=== PATIENT | male | born 1975 ===

== ENCOUNTER 2017-12-01 20:01 | Emergency (ER) | payer OTHER ==
[2017-12-01 20:24] VITALS: BP 125/77; PULSE 76; TEMP 97.1; BMI 44.8
[2017-12-01] MEDS ORDERED: KETOROLAC TROMETHAMINE 30 MG/1 ML VIAL IM ONE (20:33)
--- NOTE | 2017-12-01 20:42 | PDOC ---
History of Present Illness - General Chief Complaint: Back Pain Stated Complaint: Severe Low back pain Time Seen by Provider: 12/01/17 20:14 History Source: Patient - History of Present Illness Initial Comments: 12/01/17 20:42 41-year-old male with history of spinal stenosis status post spinal surgery in 2011 at [facility]. Patient for 2 days with increased pain to the lower back radiating to the right leg. gave patient Tramadol 100 mg 3 hours ago, lidocaine patch, cyclobenzaprine 20mg 2 hours ago. Pain only slightly relieved since intervention at home. No saddle anesthesia, numbness or tingling to the lower extremities, incontinence of urine or bowel. Past History - Past Medical History Allergies/Adverse Reactions: Allergies Allergy/AdvReac Type Severity Reaction Status Date / Time No Known Allergies Allergy Verified 12/01/17 20:24 Home Medications: Ambulatory Orders Cyclobenzaprine HCl [Flexeril -] 10 mg PO TID PRN #10 tablet 12/01/17 Ibuprofen 800 mg PO QID PRN #20 tablet 12/01/17 Oxycodone HCl/Acetaminophen [Percocet 5-325 mg Tablet] 1 tab PO Q6H PRN #7 tablet MDD 4 12/01/17 - Suicide/Smoking/Psychosocial Hx Smoking History: Never smoked Have you smoked in the past 12 months: No Information on smoking cessation initiated: No Hx Alcohol Use: No Drug/Substance Use Hx: No Review of Systems - Review of Systems Able to Perform ROS?: Yes Is the patient limited Khmer proficient: No Constitutional: No: Symptoms Reported, See HPI, Chills, Diaphoresis, Fever, Loss of Appetite, Malaise, Night Sweats, Weakness, Weight Stable, Unintentional Wgt. Loss, Unexplained wgt Loss, Other Musculoskeletal: Yes: Back Pain Integumentary: No: Symptoms Reported, See HPI, Bruising, Change in Color, Change in Hair/Nails, Dryness, Erythema, Flushing, Lesions, Lumps, Pallor, Pruritus, Rash, Sweating, Other *Physical Exam - Vital Signs Last Vital Signs Temp Pulse Resp BP Pulse Ox 97.1 F L 76 19 125/77 98 12/01/17 20:08 12/01/17 20:08 12/01/17 20:08 12/01/17 20:08 12/01/17 20:08 - Physical Exam General Appearance: Yes: Appropriately Dressed Respiratory/Chest: positive: Lungs Clear, Normal Breath Sounds Gastrointestinal/Abdominal: positive: Normal Bowel Sounds, Soft Musculoskeletal: positive: Vertebral Tenderness (lumbar sacral area) Extremity: positive: Normal Capillary Refill, Normal Inspection, Normal Range of Motion Integumentary: positive: Normal Color, Dry, Warm Neurologic: positive: Fully Oriented, Alert, Normal Mood/Affect Medical Decision Making - Medical Decision Making 12/01/17 20:45 A: back pain P:lumbar CT pain control 12/01/17 22:30 CT lumbar spine: The T12-L1 level is within normal limits for the patient's age , without spinal stenosis or neural foraminal narrowing. The L1-L2 level is within normal limits for the patient's age, without spinal stenosis or neural foraminal narrowing. At the L2-L3 level there is a moderate broad-based posterior disc osteophyte complex bulge associate with mild facet degenerative changes, but without spinal stenosis or neural foraminal narrowing. At the L3-L4 level there is a moderate to large right paracentral disc osteophyte complex which is bulging into the spinal canal area associate with bilateral facet hypertrophic degenerative changes, causing [id number] spinal stenosis and minimal bilateral neural foraminal narrowing. At the L4-L5 level there is been a prior bilateral hemilaminectomy which is associate with a large right central/paracentral disc osteophyte complex which is bulging into the spinal canal region associate with bilateral facet hypertrophic degenerative changes, causing severe right and [id number] left neural foraminal narrowing, but no spinal stenosis. At the L5-S1 level there is a right paracentral disc osteophyte complex associated with bilateral facet hypertrophic degenerative changes, causing mild bilateral neural foraminal narrowing, but no spinal stenosis. The visualized soft tissues are unremarkable. 12/01/17 23:28 pain is under control. patient to follow up with ortho/ neurosurgery for chronic back pain *DC/Admit/Observation/Transfer Diagnosis at time of Disposition: Lumbar radiculopathy - Discharge Dispostion Disposition: HOME Condition at time of disposition: Fair - Prescriptions Prescriptions: Cyclobenzaprine HCl [Flexeril -] 10 mg PO TID PRN #10 tablet PRN Reason: Muscle Spasms Ibuprofen 800 mg PO QID PRN #20 tablet PRN Reason: Back Pain Oxycodone HCl/Acetaminophen [Percocet 5-325 mg Tablet] 1 tab PO Q6H PRN #7 tablet MDD 4 PRN Reason: Moderate Pain - Referrals Referrals: Barrett Matias MD [Primary Care Provider] - Moiz Garces MD [Staff Physician] - Lamont Richards MD, FAANS [Staff Physician] - - Patient Instructions Printed Discharge Instructions: DI for Back Spasm Additional Instructions: please follow up with ortho pedic surgery take percocet as prescribed for breakthrough pain take ibuprofen every 6 hours for pain - Post Discharge Activity
[2017-12-01] MEDS ORDERED: KETOROLAC TROMETHAMINE 30 MG/1 ML VIAL ONE (20:55)
--- NOTE | 2017-12-01 21:15 | PDOC ---
*Physical Exam - Vital Signs Last Vital Signs Temp Pulse Resp BP Pulse Ox 97.1 F L 76 19 125/77 98 12/01/17 20:08 12/01/17 20:08 12/01/17 20:08 12/01/17 20:08 12/01/17 20:08 ED Treatment Course - Medications Given in the ED: ED Medications Discontinued Medications Generic Name Dose Route Start Last Admin Trade Name Freq PRN Reason Stop Dose Admin Ketorolac Tromethamine 30 mg 12/01/17 20:33 12/01/17 21:07 Toradol Injection - IM 12/01/17 20:34 30 mg ONCE ONE Administration Medical Decision Making - Medical Decision Making 12/01/17 21:15 agree with care from DAISHA Corona *DC/Admit/Observation/Transfer Diagnosis at time of Disposition: Lumbar radiculopathy - Discharge Dispostion Condition at time of disposition: Fair - Referrals Referrals: Barrett Matias MD [Primary Care Provider] - - Patient Instructions - Post Discharge Activity
[2017-12-01] MEDS ORDERED: METHOCARBAMOL 500 MG TABLET PO ONE (22:52)
[2017-12-01] MEDS ORDERED: METHOCARBAMOL 500 MG TABLET ONE ×2 (23:01→23:56)
== END 2017-12-02 | disposition home or self-care (01) ==
LOC: JER 20:01
PROC: 3E0233Z Introduction of Anti-inflammatory into Muscle, Percutaneous Approach (ICD-10-PCS; principal; 2017-12-01)
DX: M54.16 Radiculopathy, lumbar region (principal); G89.29 Other chronic pain
CPT/HCPCS: 72131-TC; 99282-25

== ENCOUNTER 2020-11-03 14:22 | Emergency (ER) | payer OTHER ==
[2020-11-03 14:29] VITALS: BMI 39.4
[2020-11-03 14:30] VITALS: TEMP 98.5
[2020-11-03 16:02] LABS: BASO % 0.7 % (0-2.0); EOS % 1.4 % (0-4.5); HEMATOCRIT 46.7 % (35.4-49); HEMOGLOBIN 16.4 GM/dL (11.7-16.9); LYMPH % 21.4 % (8-40); MCH 30.9 pg (25.7-33.7); MCHC 35.1 g/dl (32.0-35.9); MEAN CELL VOLUME 88.2 fl (80-96); MONO % 6.4 % (3.8-10.2); NEUT % 70.1 % (42.8-82.8); PLATELET COUNT 208 K/MM3 (134-434); RBC 5.29 M/mm3 (4.00-5.60); RDW 13.5 % (11.9-15.9); WHITE BLOOD COUNT 7.9 K/mm3 (4.0-10.0)
[2020-11-03 16:12] LABS: CHLORIDE 104 mmol/L (98-107); SODIUM 140 mmol/L (136-145)
[2020-11-03 16:14] LABS: CALCIUM 8.5 mg/dL (8.5-10.1)
[2020-11-03 16:15] LABS: ANION GAP 7 MMOL/L (8-16); BLOOD UREA NITROGEN 11.4 mg/dL (7-18); CO2 30 mmol/L (21-32); GLUCOSE,RANDOM 281 mg/dL (74-106)
[2020-11-03 16:16] LABS: ALBUMIN 3.9 g/dl (3.4-5.0)
[2020-11-03 16:18] LABS: CREATININE 0.9 mg/dL (0.55-1.3); SGOT/AST 21 U/L (15-37); SGPT/ALT 34 U/L (13-61)
[2020-11-03 16:19] LABS: BILIRUBIN,TOTAL 0.8 mg/dL (0.2-1)
[2020-11-03 16:21] LABS: ALK PHOS 96 U/L (45-117)
[2020-11-03 18:20] VITALS: BP 136/87; PULSE 87
== END 2020-11-03 18:21 | disposition home or self-care (01) ==
LOC: JER 14:22
DX: M79.602 Pain in left arm (principal); R20.2 Paresthesia of skin
CPT/HCPCS: 36415; 71046-TC-FY; 80053; 84484; 85025; 93005; 93010; 93971-TC; 99285-25

== ENCOUNTER 2023-10-13 20:02 | Emergency (ER) | payer OTHER ==
[2023-10-13 20:09] VITALS: TEMP 98.4; BMI 41.5
[2023-10-13 21:01] LABS: BASO % 0.6 % (0-2.0); EOS % 1.2 % (0-4.5); HEMATOCRIT 45.6 % (35.4-49); HEMOGLOBIN 16.1 GM/dL (11.7-16.9); LYMPH % 24.2 % (8-40); MCH 30.5 pg (25.7-33.7); MCHC 35.3 g/dl (32.0-35.9); MEAN CELL VOLUME 86.5 fl (80-96); MEAN PLT VOLUME 8.6 fl (7.5-11.1); MONO % 6.6 % (3.8-10.2); NEUT % 67.4 % (42.8-82.8); PLATELET COUNT 227 10^3/uL (134-434); RBC 5.28 M/mm3 (4.00-5.60); RDW 13.4 % (11.9-15.9); WHITE BLOOD COUNT 11.5 K/mm3 (4.0-10.0)
[2023-10-13 21:18] LABS: POTASSIUM 4.6 mmol/L (3.5-5.1)
[2023-10-13 21:21] LABS: ALBUMIN 3.8 g/dl (3.4-5.0); BLOOD UREA NITROGEN 14.7 mg/dL (7-18); CALCIUM 9.9 mg/dL (8.5-10.1)
[2023-10-13 21:22] LABS: INR 0.97 (0.83-1.09)
[2023-10-13 21:24] LABS: CREATININE 0.9 mg/dL (0.55-1.3)
[2023-10-13 21:25] LABS: ACTIVATED PTT 28.8 SECONDS (25.2-36.5)
[2023-10-13 21:26] LABS: BILIRUBIN,TOTAL 0.7 mg/dL (0.2-1)
[2023-10-13] MEDS: SODIUM CHLORIDE 0.9% 500 ML INFUS.BAG IV ONE (21:49)
[2023-10-13 23:56] VITALS: BP 130/73; PULSE 82; RESP 18
== END 2023-10-13 23:55 | disposition home or self-care (01) ==
LOC: JER 20:02
DX: R05.1 Acute cough (principal); R09.89 Other specified symptoms and signs involving the circulatory and respiratory systems; R06.02 Shortness of breath; R53.83 Other fatigue; Z20.822 Contact with and (suspected) exposure to COVID-19
CPT/HCPCS: 0241U-QW; 36415; 71046-TC-FY; 71275-TC; 80053; 84484; 85025; 85379; 85610; 85730; 93005; 93010; 99285-25; Q9967